=== PATIENT | female | born 1950 | race Caucasian/White ===

== ENCOUNTER 2017-03-17 11:11 | Emergency (ER) | payer MEDICARE ==
[~2017-03-17] VITALS: Ht 162.6 cm; Wt 56.7 kg
[2017-03-17] MEDS ORDERED: BUTA1TAB23 PO (12:08)
--- NOTE | 2017-03-17 12:09 | PHYS DOC ---
Past History Past Medical History: Arthritis, High Cholesterol, Migraines Past Surgical History: Tonsillectomy Alcohol Use: Occasionally Drug Use: None Adult General Chief Complaint Chief Complaint: VISION PROBLEM HPI HPI Patient is a 66 year old female who presents with complaint of right-sided headache. The patient states that her symptoms started approximately 1-1/2 hours prior to arrival. The patient states that she would has history of migraine headaches and had been having intermittent right-sided headache which is not unusual for her. She states that she took Benadryl and Tylenol last night which helped her sleep. At approximately 0930 today, the patient states that she started having pain along the right side of her head and started to notice loss of peripheral vision. Patient notes that she has had similar symptoms with previous migraines, however what concerned the patient was that the loss of vision lasted approximately 5-10 minutes. Patient states that after this period of time, her vision symptoms completely resolved. The patient states that she still has residual right-sided headache consistent with previous migraine. Patient denies previous history of TIA or stroke but does admit to family history of stroke. Patient states that she has been diagnosed in [place] with migraines and states that she had followed with a neurologist at that time who completed a thorough workup including evaluation for temporal arteritis at that time with no evidence to support. On my evaluation, patient rates her headache currently as 3 out of 10 patient denies any associated symptoms of loss of speech or swallowing, unilateral weakness or loss of sensation, nausea, or vomiting. The patient states that she currently does not have a primary physician and does not follow with a neurologist at this time. Patient states that she has a history of glaucoma, however she states that her symptoms currently do not fit the pattern that she has had in the past with her glaucoma. Review of Systems Review of Systems Constitutional: Denies fever or chills [] Eyes: Transient loss of vision in right eye, denies redness or eye pain [] HENT: Denies nasal congestion or sore throat [] Respiratory: Denies cough or shortness of breath [] Cardiovascular: Denies chest pain or edema[] GI: Denies abdominal pain, nausea, vomiting, bloody stools or diarrhea [] : Denies dysuria or hematuria [] Musculoskeletal: Denies back pain or joint pain [] Integument: Denies rash or skin lesions [] Neurologic: Headache, denies focal weakness or sensory changes [] Allergies Allergies Allergies Coded Allergies Type Severity Reaction Last Updated Verified Penicillins Allergy Intermediate rash 03/17/17 Yes sulfamethoxazole Allergy Intermediate rash 03/17/17 Yes trimethoprim Allergy Intermediate rash 03/17/17 Yes Physical Exam Physical Exam Constitutional: Well developed, well nourished, no acute distress, non-toxic appearance. [] HENT: Normocephalic, atraumatic, no tenderness to palpation over right temporal artery, bilateral external ears normal, oropharynx moist, no oral exudates, nose normal. [] Eyes: PERRLA, EOMI, conjunctiva normal, no discharge, funduscopic exam normal. [ ] Neck: Normal range of motion, no tenderness, supple, no stridor. [] Cardiovascular:Heart rate regular rhythm, no murmur [] Lungs & Thorax: Bilateral breath sounds clear to auscultation [] Abdomen: Bowel sounds normal, soft, no tenderness, no masses, no pulsatile masses. [] Skin: Warm, dry, no erythema, no rash. [] Back: No tenderness, no CVA tenderness. [] Extremities: No tenderness, no cyanosis, no clubbing, ROM intact, no edema. [] Neurologic: Alert and oriented X 3, normal motor function, normal sensory function, no focal deficits noted. [] Current Patient Data Vital Signs Vital Signs Date Time Temp Pulse Resp B/P (MAP) Pulse Ox O2 Delivery O2 Flow Rate FiO2 03/17/17 11:11 97.9 115 20 96 Room Air Lab Results None performed EKG EKG Not performed[] Radiology/Procedures Radiology/Procedures None performed[] Course & Med Decision Making Course & Med Decision Making Pertinent Labs and Imaging studies reviewed. (See chart for details) The patient's exam at this time is normal. The patient's symptoms may be consistent with previous history of migraine phenomenon. Additional diagnosis could include possible TIA versus primary disease. The patient's vital signs are stable at this time. After discussing with patient testing options and plan of care, the patient states that she is comfortable foregoing CT imaging which in my opinion would be low yield for acute pathology at this time. She also does not wish to have blood testing done at this time which again I feel is not unreasonable. I did recommend initiation of aspirin therapy which the patient was agreeable. Patient given 325 mg of aspirin in the emergency department. Advised patient to continue on 81 mg aspirin daily until she is obtained follow- up with both primary care and with neurology. Also recommended the patient follow-up with ophthalmology to receive an eye examination the next 2-3 days. Patient treated with Fioricet for migraine symptoms. Recommended return to the emergency department for any worsening symptoms. Patient voiced understanding and in agreement with treatment plan. Dragon Disclaimer Dragon Disclaimer This chart was dictated in whole or in part using Voice Recognition software in a busy, high-work load, and often noisy Emergency Department environment. It may contain unintended and wholly unrecognized errors or omissions. Departure Departure: Impression: Primary Impression: Headache Additional Impression: Changes in vision Disposition: HOME, SELF-CARE Condition: IMPROVED Referrals: PCP,ERASMO (PCP) LINH TAN MD, JOHN S DO Patient Instructions: Eye - Blurred Vision, Migraine Headache Additional Instructions: It is recommended that you start on daily aspirin 81 mg tablet. You have been referred to Dr. Tan of neurology for follow-up in one to [address] Martini of ophthalmology for follow-up in 2-3 days for reevaluation. Return to the emergency department for any worsening symptoms. Scripts Butalb/Acetaminophen/Caffeine ([id number] [id number]) 1 Each Tablet 1 EACH PO Q4-6HRS Y for HEADACHE, #20 TAB Prov: ASHLEY JOEL MD 03/17/17 Problem Qualifiers Primary Impression: Headache Headache type: unspecified Headache chronicity pattern: acute headache Intractability: not intractable Qualified Codes: R51 - Headache ASHLEY JOEL MD Mar 17, 2017 12:08
[2017-03-17 12:10] VITALS: BP 142/74
[2017-03-17] MEDS ORDERED: BUTALB/APAP/CAFEIN 50/325/40MG TABLET. PO ONE (12:30)
[2017-03-17] MEDS ORDERED: ASPIRIN 325 MG TABLET PO ONE (12:30)
== END 2017-03-17 12:20 | disposition home or self-care (01) ==
LOC: ER 11:11
DX: G43.909 Migraine, unspecified, not intractable, without status migrainosus (principal); E78.00 Pure hypercholesterolemia, unspecified; M19.90 Unspecified osteoarthritis, unspecified site; H40.9 Unspecified glaucoma; Z88.0 Allergy status to penicillin; Z88.1 Allergy status to other antibiotic agents
CPT/HCPCS: 99283